=== PATIENT | female | born 1995 | race American Indian/Alaskan Native ===

== ENCOUNTER 2017-08-07 08:10 | Emergency (ER) | payer SELFPAY ==
[2017-08-07 08:29] VITALS: BP 125/70
[2017-08-07] MEDS ORDERED: NACL 0.9% 1000 ML 1,000 ML IV ONE (09:19)
--- NOTE | 2017-08-07 09:19 | Emergency Department Report ---
ED Abdominal Pain HPI - General Chief Complaint: Urogenital-Female Stated Complaint: ABD/BACK PAIN Time Seen by Provider: 08/07/17 08:50 Source: patient Mode of arrival: Ambulatory Limitations: No Limitations - History of Present Illness Initial Comments: This is a 21-year-old female nontoxic, well nourished in appearance, no acute signs of distress presents to the ED with c/o of lower abdominal pain, flank pain, vaginal discharge, dysuria 1 week. Patient describes low abdominal pain as aching level of 6 out of 10. Patient denies any nausea, vomiting, numbness, tingling, radiation of back pain, chest pain, shortness of breath, epigastric pain, fever, chills, headache or stiff neck. Patient discussed vaginal discharge as white thick with foul order. Patient states she is concerned about sexual transmitted disease and likely be treated empirically. Patient denies any allergies. Past medical history includes genital herpes. MD Complaint: abdominal pain, flank pain -: week(s) (1) Location: diffuse Radiation: none Migration to: no migration Severity: mild Severity scale (0 -10): 6 Quality: aching Consistency: constant Improves With: nothing Worsens With: nothing Associated Symptoms: denies other symptoms. denies: nausea, vomiting, diarrhea , fever, chills, constipation, dysuria, hematemesis, hematochezia, melena, hematuria, anorexia, syncope - Related Data Previous Rx's Medication Instructions Recorded Last Taken Type Ciprofloxacin HCl [Ciprofloxacin 500 mg PO Q12H #14 tab 08/07/17 Unknown Rx TAB] metroNIDAZOLE [Flagyl] 500 mg PO Q12HR #14 tab 08/07/17 Unknown Rx Allergies Allergy/AdvReac Type Severity Reaction Status Date / Time No Known Allergies Allergy Unverified 08/07/17 08:25 ED Review of Systems ROS: Stated complaint: ABD/BACK PAIN Other details as noted in HPI Constitutional: denies: chills, fever Eyes: denies: eye pain, eye discharge, vision change ENT: denies: ear pain, throat pain Respiratory: denies: cough, shortness of breath, wheezing Cardiovascular: denies: chest pain, palpitations Endocrine: no symptoms reported Gastrointestinal: abdominal pain. denies: nausea, diarrhea Genitourinary: dysuria, discharge. denies: urgency Musculoskeletal: back pain. denies: joint swelling, arthralgia Skin: denies: rash, lesions Neurological: denies: headache, weakness, paresthesias Psychiatric: denies: anxiety, depression Hematological/Lymphatic: denies: easy bleeding, easy bruising ED Past Medical Hx - Past Medical History Previous Medical History?: Yes Additional medical history: Herpes - Surgical History Past Surgical History?: No - Social History Smoking Status: Never Smoker Substance Use Type: None - Medications Home Medications: Home Medications Medication Instructions Recorded Confirmed Last Taken Type Ciprofloxacin HCl [Ciprofloxacin 500 mg PO Q12H #14 tab 08/07/17 Unknown Rx TAB] metroNIDAZOLE [Flagyl] 500 mg PO Q12HR #14 tab 08/07/17 Unknown Rx ED Physical Exam - General Limitations: No Limitations General appearance: alert, in no apparent distress - Head Head exam: Present: atraumatic, normocephalic, normal inspection - Eye Eye exam: Present: normal appearance, PERRL, EOMI. Absent: scleral icterus, conjunctival injection, nystagmus, periorbital swelling, periorbital tenderness Pupils: Present: normal accommodation - ENT ENT exam: Present: normal exam, normal orophraynx, mucous membranes moist, TM's normal bilaterally, normal external ear exam - Neck Neck exam: Present: normal inspection, full ROM. Absent: tenderness, meningismus, lymphadenopathy, thyromegaly - Respiratory Respiratory exam: Present: normal lung sounds bilaterally. Absent: respiratory distress, wheezes, rales, rhonchi, stridor, chest wall tenderness, accessory muscle use, decreased breath sounds, prolonged expiratory - Cardiovascular Cardiovascular Exam: Present: regular rate, normal rhythm, normal heart sounds. Absent: irregular rhythm, systolic murmur, diastolic murmur, rubs, gallop - GI/Abdominal GI/Abdominal exam: Present: soft, normal bowel sounds. Absent: distended, tenderness, guarding, rebound, rigid, diminished bowel sounds - Rectal Rectal exam: Present: deferred - External exam: Present: normal external exam, other (steel unloader Anastacia RN present during exam). Absent: erythema, swelling, lesions, lacerations, ecchymosis, bleeding Speculum exam: Present: normal speculum exam, cervical discharge (thich white with odor), other (steel unloader Anastacia RN present during exam). Absent: erythema, vaginal discharge, vaginal bleeding, foreign body, tissue, laceration Bi-manual exam: Present: normal bi-manual exam, other (steel unloader Anastacia MARSHALL present during exam). Absent: cervical motion tendernes, adnexal tenderness, uterine enlargement, uterine tenderness - Extremities Exam Extremities exam: Present: normal inspection, full ROM, normal capillary refill. Absent: tenderness, pedal edema, joint swelling, calf tenderness - Back Exam Back exam: Present: normal inspection, full ROM, CVA tenderness (R). Absent: tenderness, CVA tenderness (L), muscle spasm, paraspinal tenderness, vertebral tenderness, rash noted - Neurological Exam Neurological exam: Present: alert, oriented X3, CN II-XII intact, normal gait, reflexes normal - Psychiatric Psychiatric exam: Present: normal affect, normal mood - Skin Skin exam: Present: warm, dry, intact, normal color. Absent: rash ED Course Vital Signs 08/07/17 08:25 Temperature 98.5 F Pulse Rate 102 H Respiratory 16 Rate Blood Pressure 125/70 O2 Sat by Pulse 100 Oximetry - Reevaluation(s) Reevaluation #1: 08/07/17 09:21 Patient is speaking in full sentences with no signs of distress noted. ED Medical Decision Making - Lab Data Result diagrams: 08/07/17 09:46 08/07/17 09:46 - Medical Decision Making This is a 21-year-old female BV, UTI versus pyelonephritis and possible STD. Patient is stable and was examined by me. Due to physical exam of positive CVA tenderness and UJTI symptoms patient is treated for pyelo. Labs obtained within normal limits. CT of abd with contrast obtained with normal exam and dictated by radiologist. Patient is notified of ct results with no questions noted. UA obtained. GC obtained and pending. Wet prep obtained. Patient was instructed to return in 3 days to obtain results of GC. Patient stated wants to be treated empirically. Pt received Rocephin and azithromycin in the ED. Patient discharged with Cipro and flagyl. Pt was instructed not to consume and alcohol while taking Flagyl. Patient was instructed Follow-up with a primary care doctor in 3-5 days or if symptoms worsen and continue return to emergency room as soon as possible. At time time of discharge, the patient does not seem toxic or ill in appearance. No acute signs of distress noted. Patient agrees to discharge treatment plan of care. No further questions noted by the patient. Critical care attestation.: If time is entered above; I have spent that time in minutes in the direct care of this critically ill patient, excluding procedure time. ED Disposition Clinical Impression: Pyelonephritis, Possible exposure to STD, Bacterial vaginosis UTI (urinary tract infection) Qualifiers: Urinary tract infection type: site unspecified Hematuria presence: without hematuria Qualified Code(s): N39.0 - Urinary tract infection, site not specified Disposition: TO HOME OR SELFCARE Is pt being admited?: No Does the pt Need Aspirin: No Condition: Stable Instructions: Ciprofloxacin (By mouth), Urinary Tract Infection in Women (ED), Acute Pyelonephritis (ED), Bacterial Vaginosis (ED) Additional Instructions: Follow-up with a primary care doctor in 3-5 days or if symptoms worsen and continue return to emergency room as soon as possible. Return in 3 days to obtained results of gonorrhea/chlamydia. Do not consume and alcohol while taking antibiotics Prescriptions: Ciprofloxacin HCl [Ciprofloxacin TAB] 500 mg PO Q12H #14 tab metroNIDAZOLE [Flagyl] 500 mg PO Q12HR #14 tab Referrals: PRIMARY MD JAVIER [Primary Care Provider] - 3-5 Days CELIA GARCIA MD [Staff Physician] - 3-5 Days CLAIRE QUINTANILLA MD [Staff Physician] - 3-5 Days [facility] [Outside] - 3-5 Days [facility] [Outside] - 3-5 Days Forms: Work/School Release Form(ED), STI Treatment and Prevention
[2017-08-07] MEDS ORDERED: ZITHROMAX PO ONE (09:37)
[2017-08-07] MEDS ORDERED: ROCEPHIN IM ONE (09:37)
[2017-08-07] MEDS ORDERED: XYLOCAINE 1% MPF 5 mL INFILTRATI ONE (09:37)
[2017-08-07 09:38] LABS: Bacteria,Urine 1+ /HPF (Negative); Bilirubin,Urine NEG (Negative); Blood,Urine MOD (Negative); Ketones,Urine 80 mg/dL (Negative); Leukocyte Esterase,Urine SM (Negative); Mucus,Urine FEW /HPF; Nitrite,Urine NEG (Negative); Protein,Urine <15 mg/dL mg/dL (Negative); Urobilinogen,Urine < 2.0 mg/dL (<2.0)
[2017-08-07 10:01] LABS: Basophils % (Auto) 0.3 % (0.0-1.8); Eosinophils % (Auto) 1.2 % (0.0-4.3); Hematocrit 36.5 % (30.3-42.9); Hemoglobin 12.5 gm/dl (10.1-14.3); Mean Corpuscular HGB Conc 34 % (30-34); Mean Corpuscular Hemoglobin 28 pg (28-32); Mean Corpuscular Volume 82 fl (79-97); Platelet Count 296 K/mm3 (140-440); Red Blood Count 4.43 M/mm3 (3.65-5.03); Red Cell Distribution Width 13.3 % (13.2-15.2); White Blood Count 6.9 K/mm3 (4.5-11.0)
[2017-08-07] MEDS ORDERED: NACL ONE (10:05)
[2017-08-07 10:16] LABS: Alanine Aminotransferase 9 units/L (7-56); Albumin 4.1 g/dL (3.9-5); Albumin/Globulin Ratio 1.2 %; Alkaline Phosphatase 54 units/L (35-129); Amylase 107 units/L (27-131); Anion Gap 18 mmol/L; BUN/Creatinine Ratio 13; Blood Urea Nitrogen 9 mg/dL (7-17); Calcium 9.5 mg/dL (8.4-10.2); Carbon Dioxide 26 mmol/L (22-30); Chloride 101.5 mmol/L (98-107); Glucose 82 mg/dL (65-100); Lipase 12 units/L (13-60); Potassium 4.4 mmol/L (3.6-5.0); Sodium 141 mmol/L (137-145); Total Protein 7.5 g/dL (6.3-8.2)
[2017-08-07 10:18] LABS: Bilirubin,Direct < 0.2 mg/dL (0-0.2); Bilirubin,Indirect 0.3 mg/dL
--- NOTE | 2017-08-07 11:08 | Cat Scan Report ---
CT ABDOMEN PELVIS WITH CONTRAST: HISTORY: abdominal pain. COMPARISON: none. TECHNIQUE: Helical CT in 1.25mm intervals following IV contrast. Sagittal and coronal reconstructions. FINDINGS: Lung bases: normal. Liver: normal. Biliary system: normal. Pancreas: normal. Spleen: normal. Kidneys/ureters/bladder: normal. Adrenal glands: normal. Aorta: normal. Intestines: normal. Appendix: normal. Pelvic viscera: normal. Musculoskeletal: normal. IMPRESSION: Unremarkable CT scan of the abdomen and pelvis with contrast.
[2017-08-07] MEDS ORDERED: TORADOL IV ONE (11:26)
[2017-08-07] MEDS ORDERED: TORADOL ONE (11:29)
== END 2017-08-07 12:21 | disposition home or self-care (01) ==
LOC: ED 08:10
DX: N12 Tubulo-interstitial nephritis, not specified as acute or chronic (principal); N39.0 Urinary tract infection, site not specified; N76.0 Acute vaginitis
CPT/HCPCS: 36415; 74177; 80048; 80074; 81001; 82150; 83690; 84703; 85025; 87086; 87210; 87591; 96361; 96372; 96374; 99285; J0696; J1885; J7030; Q9967

== ENCOUNTER 2017-08-12 21:55 | Emergency (ER) | payer SELFPAY ==
[2017-08-12] MEDS ORDERED: NACL 0.9% 1000 ML 1,000 ML IV ONE (22:51)
[2017-08-12] MEDS ORDERED: MORPHINE IV ONE (22:52)
--- NOTE | 2017-08-12 22:56 | Emergency Department Report ---
HPI - General Chief Complaint: Abdominal Pain Time Seen by Provider: 08/12/17 22:38 - HPI HPI: This is a 21 year-old female presents to the emergency department from home with complaint of some lower abdominal and/or pelvic pain that has been going on for about one week. The patient was here 5 days ago, on 08/07/17, for similar symptoms and was diagnosed with bacterial vaginosis and possibly a UTI. She was sent home with Flagyl and Cipro which she says she has been taking. She says the pain has not gotten any better and possibly worsened. She also shows a picture of some type of discharge or growth that she says is a picture of her vagina. She does not have a primary care physician or IT APPLICATIONS DEVELOPER. She denies any fever, nausea, vomiting but does complain of some dysuria. No recent travel or sick contacts at home. ED Past Medical Hx - Past Medical History Additional medical history: Herpes - Surgical History Past Surgical History?: No - Social History Smoking Status: Never Smoker Substance Use Type: None - Medications Home Medications: Home Medications Medication Instructions Recorded Confirmed Last Taken Type Ciprofloxacin HCl [Ciprofloxacin 500 mg PO Q12H #14 tab 08/07/17 Unknown Rx TAB] metroNIDAZOLE [Flagyl] 500 mg PO Q12HR #14 tab 08/07/17 Unknown Rx Fluconazole [Diflucan] 150 mg PO QDAY #2 tablet 08/13/17 Unknown Rx Miconazole/Cleanser 17 On Wipe 1 each VG QHS #1 kit 08/13/17 Unknown Rx [Monistat 7 Combination Pack] ED Review of Systems ROS: Stated complaint: ABD PAIN Other details as noted in HPI Comment: All other systems reviewed and negative Constitutional: denies: chills, fever Eyes: denies: eye pain, eye discharge, vision change ENT: denies: ear pain, throat pain Respiratory: denies: cough, shortness of breath, wheezing Cardiovascular: denies: chest pain, palpitations Gastrointestinal: abdominal pain. denies: nausea, vomiting Genitourinary: dysuria, discharge Musculoskeletal: denies: back pain, joint swelling, arthralgia Skin: denies: rash, lesions Neurological: denies: headache, weakness, paresthesias Physical Exam - Physical Exam Vital Signs: Vital Signs 08/12/17 08/12/17 22:09 22:44 Temperature 99.1 F 99.7 F H Pulse Rate 98 H 106 H Respiratory 16 18 Rate Blood Pressure 137/77 Blood Pressure 130/65 [Right] O2 Sat by Pulse 100 100 Oximetry Physical Exam: GENERAL: The patient is well-developed well-nourished. HENT: Normocephalic. Atraumatic. Patient has moist mucous membranes. EYES: Extraocular motions are intact. Pupils equal reactive to light bilaterally. NECK: Supple. Trachea is midline. CHEST/LUNGS: Clear to auscultation. There is no respiratory distress noted. HEART/CARDIOVASCULAR: Regular. There is no tachycardia. There is no murmur. ABDOMEN: Abdomen is soft, nontender. Patient has normal bowel sounds. There is no abdominal distention. SKIN: Skin is warm and dry. NEURO: The patient is awake, alert, and oriented. The patient is cooperative. The patient has no focal neurologic deficits. The patient has normal speech. MUSCULOSKELETAL: There is no tenderness or deformity. There is no limitation range of motion. There is no evidence of acute injury. : There is some thick white cheesy-appearing discharge seen in the vaginal vault. There is also a small amount of thin white discharge. No vaginal or labial lesions seen. ED Course Vital Signs 08/12/17 08/12/17 22:09 22:44 Temperature 99.1 F 99.7 F H Pulse Rate 98 H 106 H Respiratory 16 18 Rate Blood Pressure 137/77 Blood Pressure 130/65 [Right] O2 Sat by Pulse 100 100 Oximetry ED Medical Decision Making - Lab Data Result diagrams: 08/12/17 22:42 08/12/17 22:42 - Radiology Data Radiology results: report reviewed EXAM: US TRANSVAGINAL, US PELVIS DUPLEX DOPPLER COMP HISTORY: Pelvic pain. TECHNIQUE: Directed transabdominal and transvaginal ultrasound examination of the pelvis was performed, with grayscale and color Doppler images obtained. No prior studies are available for comparison. FINDINGS: The uterus is anteverted, and measures approximately 4.4 x 3.5 x 7.2 cm on the transvaginal images. There is no discrete uterine mass. The endometrium measures 1.1 cm, within normal limits for patient's age. The right ovary measures 2.0 x 1.5 x 3.0 cm, and the left ovary measures 1.9 x 1.8 x 3.6 cm. Both ovaries contain normal appearing, subcentimeter follicles. There is appropriate color doppler flow in both ovaries, without evidence of torsion. No other adnexal mass is seen. There is no significant pelvic free fluid. IMPRESSION: Normal sonographic appearance of the uterus and bilateral ovaries. Transcribed By: FREDDY Dictated By: LOLI BECKETT MD Electronically Authenticated By: LOLI BECKETT MD Signed Date/Time: 08/12/172051 - Medical Decision Making The patient presents with complaints of vaginal discharge with some irritation, diarrhea and some pelvic discomfort. Vital signs and stable throughout her ED course. Labs and mostly unremarkable. No leukocytosis. Patient is not . There does not appear to be any significant urinary tract infection. The wet prep was negative for BV and trichomoniasis. She does have a large amount of thick white cheesy discharge concerning for a candidal vaginal infection. She is artifact from taking a weeks worth of Flagyl and Cipro. She will go home on Diflucan and Monistat. The rectal exam was done and there was stool that was guaiac-negative. The patient also had a pelvic ultrasound with Doppler that did not show any abnormalities of the uterus or ovaries. She was given a referral for IT APPLICATIONS DEVELOPER. She will return to the ER with any worsening of her symptoms or any acute distress. - Differential Diagnosis BV, yeast infection, trichomoniasis, UTI, fibroids, ovarian torsion Critical Care Time: No Critical care attestation.: If time is entered above; I have spent that time in minutes in the direct care of this critically ill patient, excluding procedure time. ED Disposition Clinical Impression: Vulvovaginal candidiasis, Pelvic pain Diarrhea Qualifiers: Diarrhea type: unspecified type Qualified Code(s): R19.7 - Diarrhea, unspecified Disposition: DC-01 TO HOME OR SELFCARE Is pt being admited?: No Condition: Stable Instructions: Vulvovaginal Candidiasis (ED), Acute Diarrhea (ED) Additional Instructions: Please follow up with a primary care physician and IT APPLICATIONS DEVELOPER as soon as possible. Return to the emergency Department with any worsening of her symptoms or any acute distress. Prescriptions: Miconazole/Cleanser 17 On Wipe [Monistat 7 Combination Pack] 1 each VG QHS #1 kit Fluconazole [Diflucan] 150 mg PO QDAY #2 tablet Referrals: PRIMARY CAREMD [Primary Care Provider] - 3-5 Days [facility] [Provider Group] - 3-5 Days DANIS HURTADO MD [Staff Physician] - 3-5 Days [facility] [Outside] - 3-5 Days Time of Disposition: 02:09
[2017-08-12 23:29] LABS: Basophils % (Auto) 0.4 % (0.0-1.8); Hematocrit 34.7 % (30.3-42.9); Hemoglobin 11.9 gm/dl (10.1-14.3); Mean Corpuscular HGB Conc 34 % (30-34); Mean Corpuscular Hemoglobin 28 pg (28-32); Mean Corpuscular Volume 82 fl (79-97); Platelet Count 286 K/mm3 (140-440); Red Blood Count 4.26 M/mm3 (3.65-5.03); Red Cell Distribution Width 13.9 % (13.2-15.2); White Blood Count 10.6 K/mm3 (4.5-11.0)
[2017-08-12 23:46] LABS: Alanine Aminotransferase 10 units/L (7-56); Albumin 4.1 g/dL (3.9-5); Albumin/Globulin Ratio 1.3 %; Alkaline Phosphatase 57 units/L (35-129); Anion Gap 16 mmol/L; BUN/Creatinine Ratio 13; Blood Urea Nitrogen 9 mg/dL (7-17); Calcium 9.1 mg/dL (8.4-10.2); Carbon Dioxide 24 mmol/L (22-30); Chloride 103.1 mmol/L (98-107); Glucose 117 mg/dL (65-100); Lipase 18 units/L (13-60); Potassium 3.5 mmol/L (3.6-5.0); Sodium 140 mmol/L (137-145); Total Protein 7.3 g/dL (6.3-8.2)
[2017-08-13 00:03] LABS: Bacteria,Urine 1+ /HPF (Negative); Bilirubin,Urine NEG (Negative); Blood,Urine NEG (Negative); Ketones,Urine TR mg/dL (Negative); Leukocyte Esterase,Urine LG (Negative); Mucus,Urine FEW /HPF; Nitrite,Urine NEG (Negative); Protein,Urine <15 mg/dL mg/dL (Negative); Urobilinogen,Urine < 2.0 mg/dL (<2.0)
--- NOTE | 2017-08-13 00:55 | Ultrasound Report ---
FINAL REPORT EXAM: US TRANSVAGINAL, US PELVIS DUPLEX DOPPLER COMP HISTORY: Pelvic pain. TECHNIQUE: Directed transabdominal and transvaginal ultrasound examination of the pelvis was performed, with grayscale and color Doppler images obtained. No prior studies are available for comparison. FINDINGS: The uterus is anteverted, and measures approximately 4.4 x 3.5 x 7.2 cm on the transvaginal images. There is no discrete uterine mass. The endometrium measures 1.1 cm, within normal limits for patient's age. The right ovary measures 2.0 x 1.5 x 3.0 cm, and the left ovary measures 1.9 x 1.8 x 3.6 cm. Both ovaries contain normal appearing, subcentimeter follicles. There is appropriate color doppler flow in both ovaries, without evidence of torsion. No other adnexal mass is seen. There is no significant pelvic free fluid. IMPRESSION: Normal sonographic appearance of the uterus and bilateral ovaries.
--- NOTE | 2017-08-13 00:58 | Ultrasound Report ---
FINAL REPORT EXAM: US TRANSVAGINAL, US PELVIS DUPLEX DOPPLER COMP. HISTORY: Pelvic pain. TECHNIQUE: Directed transabdominal and transvaginal ultrasound examination of the pelvis was performed, with grayscale and color Doppler images obtained. No prior studies are available for comparison. FINDINGS: The uterus is anteverted, and measures approximately 4.4 x 3.5 x 7.2 cm on the transvaginal images. There is no discrete uterine mass. The endometrium measures 1.1 cm, within normal limits for patient's age. The right ovary measures 2.0 x 1.5 x 3.0 cm, and the left ovary measures 1.9 x 1.8 x 3.6 cm. Both ovaries contain subcentimeter follicles. There is appropriate color doppler flow in both ovaries, without evidence of torsion. No other adnexal mass is seen. There is no significant pelvic free fluid. IMPRESSION: Normal sonographic appearance of the uterus and bilateral ovaries.
[2017-08-13 02:13] VITALS: BP 111/58
== END 2017-08-13 02:24 | disposition home or self-care (01) ==
LOC: ED 21:55
DX: B37.3 Candidiasis of vulva and vagina (principal); R19.7 Diarrhea, unspecified
CPT/HCPCS: 36415; 76830; 80053; 81001; 83690; 84703; 85025; 87210; 87591; 93975; 96361; 96374; 99284; J2270; J7030

== ENCOUNTER 2018-09-25 18:49 | Emergency (ER) | payer MEDICAID ==
[2018-09-25 19:07] VITALS: BP 129/71
[2018-09-25 19:39] LABS: Basophils % (Auto) 0.3 % (0.0-1.8); Eosinophils # (Auto) 0.1 K/mm3 (0.0-0.4); Eosinophils % (Auto) 1.6 % (0.0-4.3); Hematocrit 33.4 % (30.3-42.9); Hemoglobin 10.9 gm/dl (10.1-14.3); Lymphocytes # (Auto) 2.3 K/mm3 (1.2-5.4); Lymphocytes % (Auto) 25.8 % (13.4-35.0); Mean Corpuscular HGB Conc 32 % (30-34); Mean Corpuscular Volume 78 fl (79-97); Monocytes # (Auto) 0.4 K/mm3 (0.0-0.8); Monocytes % (Auto) 4.9 % (0.0-7.3); Platelet Count 331 K/mm3 (140-440); Red Blood Count 4.31 M/mm3 (3.65-5.03); Red Cell Distribution Width 17.3 % (13.2-15.2)
[2018-09-25 19:51] LABS: BUN/Creatinine Ratio 16; Blood Urea Nitrogen 13 mg/dL (7-17); Hemolysis Index 0
--- NOTE | 2018-09-25 22:06 | Emergency Department Report ---
ED Chest Pain HPI - General Chief Complaint: Chest Pain Stated Complaint: CHEST PAIN/SOB Time Seen by Provider: 09/25/18 21:01 Source: patient Mode of arrival: Ambulatory Limitations: No Limitations - History of Present Illness Initial Comments: 22 year old -Malagasy female comes in complaining of left-sided chest pain 3 weeks with radiation to the back. Patient states the pain gets worse when talking or deep breathing. Patient states it is a stabbing pain and shortness of breathing. Patient denies any nausea no vomiting. Patient does st ate she had a 2 months ago. Patient reports no complications on her she did have to deliver with the . She is currently taking no control. She has not taken anything for pain. MD Complaint: chest pain -: week(s) (3) Pain Location: substernal Pain Radiation: back Severity: severe Severity scale (0 -10): 8 Quality: sharp Consistency: constant Improves With: nothing Worsens With: inspiration (deep), palpation, movement Context: recent surgery (2 months ) re: denies: nausea, vomting Other Symptoms: denies: cough, fever, syncope, acid taste in mouth, leg swelling, palpitations, burping Treatments Prior to Arrival: none - Related Data On Oral Contraceptives: No Previous Rx's Medication Instructions Recorded Last Taken Type Ciprofloxacin HCl [Ciprofloxacin 500 mg PO Q12H #14 tab 08/07/17 Unknown Rx TAB] metroNIDAZOLE [Flagyl] 500 mg PO Q12HR #14 tab 08/07/17 Unknown Rx Fluconazole [Diflucan] 150 mg PO QDAY #2 tablet 08/13/17 Unknown Rx Miconazole/Cleanser 17 On Wipe 1 each VG QHS #1 kit 08/13/17 Unknown Rx [Monistat 7 Combination Pack] Ibuprofen [Motrin] 800 mg PO Q8HR PRN #20 tablet 07/14/18 Unknown Rx oxyCODONE /ACETAMINOPHEN [Percocet 1 tab PO Q4HR #14 tab 07/14/18 Unknown Rx 5/325] Ibuprofen [Motrin 600 MG tab] 600 mg PO Q8H #15 tablet 09/25/18 Unknown Rx Allergies Allergy/AdvReac Type Severity Reaction Status Date / Time No Known Allergies Allergy Verified 07/12/18 22:44 Heart Score - HEART Score History: Slightly suspicious EKG: Normal Age: < 45 Risk factors: No known risk factors Troponin: < normal limit HEART Score: 0 ED Review of Systems ROS: Stated complaint: CHEST PAIN/SOB Other details as noted in HPI Comment: All other systems reviewed and negative Respiratory: shortness of breath Cardiovascular: chest pain ED Past Medical Hx - Past Medical History Previous Medical History?: Yes Hx Hypertension: No Hx Congestive Heart Failure: No Hx Diabetes: No Hx Deep Vein Thrombosis: No Hx Renal Disease: No Hx Sickle Cell Disease: Yes (sickle cell trait only) Hx Seizures: No Hx Asthma: No Hx COPD: No Hx HIV: No Additional medical history: Herpes - Surgical History Past Surgical History?: Yes Additional Surgical History: - Social History Smoking Status: Never Smoker Substance Use Type: None - Medications Home Medications: Home Medications Medication Instructions Recorded Confirmed Last Taken Type Ciprofloxacin HCl [Ciprofloxacin 500 mg PO Q12H #14 tab 08/07/17 07/15/18 Unknown Rx TAB] metroNIDAZOLE [Flagyl] 500 mg PO Q12HR #14 tab 08/07/17 07/15/18 Unknown Rx Fluconazole [Diflucan] 150 mg PO QDAY #2 tablet 08/13/17 07/15/18 Unknown Rx Miconazole/Cleanser 17 On Wipe 1 each VG QHS #1 kit 08/13/17 07/15/18 Unknown Rx [Monistat 7 Combination Pack] Ibuprofen [Motrin] 800 mg PO Q8HR PRN #20 tablet 07/14/18 Unknown Rx oxyCODONE /ACETAMINOPHEN [Percocet 1 tab PO Q4HR #14 tab 07/14/18 Unknown Rx 5/325] Ibuprofen [Motrin 600 MG tab] 600 mg PO Q8H #15 tablet 09/25/18 Unknown Rx ED Physical Exam - General Limitations: No Limitations General appearance: alert, in no apparent distress - Head Head exam: Present: atraumatic, normocephalic - Eye Eye exam: Present: EOMI - ENT ENT exam: Present: mucous membranes moist - Respiratory Respiratory exam: Present: normal lung sounds bilaterally, chest wall tenderness . Absent: respiratory distress - Cardiovascular Cardiovascular Exam: Present: regular rate, normal rhythm. Absent: systolic murmur, diastolic murmur, rubs, gallop - GI/Abdominal GI/Abdominal exam: Present: soft, normal bowel sounds. Absent: distended, tenderness - Back Exam Back exam: Present: normal inspection, full ROM - Neurological Exam Neurological exam: Present: alert, oriented X3 - Psychiatric Psychiatric exam: Present: normal affect, normal mood - Skin Skin exam: Present: warm, dry, intact, normal color. Absent: rash ED Course Vital Signs 09/25/18 19:02 Temperature 99.1 F Pulse Rate 98 H Respiratory 18 Rate Blood Pressure 129/71 O2 Sat by Pulse 99 Oximetry ARJUN score - Arjun Score Age > 65: (0) No Aspirin use within the Past 7 Days: (0) No 3 or more CAD Risk Factors: (0) No 2 or more Angina events in past 24 hrs: (0) No Known CAD with more than 50% Stenosis: (0) No Elevated Cardiac Markers: (0) No ST Deviation Greater than 0.5mm: (0) No ARJUN Score: 0 ED Medical Decision Making - Lab Data Result diagrams: 09/25/18 19:17 09/25/18 19:17 - Radiology Data Radiology results: report reviewed Chest x-ray shows no cardiopulmonary abnormalities. Critical care attestation.: If time is entered above; I have spent that time in minutes in the direct care of this critically ill patient, excluding procedure time. ED Disposition Clinical Impression: Costochondritis, acute Disposition: Z-07 ELOPED Is pt being admited?: No Does the pt Need Aspirin: No Condition: Stable Instructions: Ibuprofen (By mouth), Costochondritis (ED) Additional Instructions: Chest x-ray EKG and labs are negative for any acute coronary or pulmonary disease. U have reproducible chest pain and back pain. This appears to be a costochondritis. Ibuprofen the best medication for costochondritis. Please take with food and plenty of water. It is safe in breast-feeding. Follow up with the primary care provider if his symptoms persist or gets worse. Prescriptions: Ibuprofen [Motrin 600 MG tab] 600 mg PO Q8H #15 tablet Referrals: CELIO ORONA MD [Primary Care Provider] - 3-5 Days [facility] [Provider Group] - 3-5 Days Forms: Work/School Release Form(ED)
--- NOTE | 2018-09-25 22:58 | XRay Report ---
FINAL REPORT EXAM: XR CHEST ROUTINE 2V HISTORY: cp TECHNIQUE: 2 views of the chest. PRIORS: None. FINDINGS: The cardiomediastinal silhouette appears normal. The lungs are clear. The bones and soft tissues are unremarkable. IMPRESSION: No evidence of acute cardiopulmonary disease
[2018-09-25] MEDS ORDERED: IBUPROFEN PO ONE (23:33)
== END 2018-09-25 23:40 | disposition left against medical advice (07) ==
LOC: ED 18:49
DX: M94.0 Chondrocostal junction syndrome [Tietze] (principal); D57.3 Sickle-cell trait; Z79.899 Other long term (current) drug therapy
CPT/HCPCS: 36415; 71046; 80048; 83690; 84484; 84703; 85025; 85379; 93005; 93010; 99283

== ENCOUNTER 2019-09-24 12:08 | Emergency (ER) | payer MEDICAID, MEDICARE ==
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
--- NOTE | 2019-09-24 15:48 | Cat Scan Report ---
CT HEAD WITHOUT CONTRAST INDICATION / CLINICAL INFORMATION: headache/neck pain w/ loc. TECHNIQUE: All CT scans at this location are performed using CT dose reduction for ALARA by means of automated e xposure control. COMPARISON: None available. FINDINGS: HEMORRHAGE: No evidence of intracranial hemorrhage or extra-axial fluid collection. EXTRA-AXIAL SPACES: Cortical sulci, sylvian fissures and basilar cisterns have an unremarkable appear ance. VENTRICULAR SYSTEM: The ventricular system is of normal size and configuration. CEREBRAL PARENCHYMA: No areas of abnormal brain parenchymal attenuation are identified. There is no i ndication of recent infarction. MIDLINE SHIFT OR HERNIATION: There is no mass effect. CEREBELLUM / BRAINSTEM: Brainstem and cerebellum have an unremarkable appearance. INTRACRANIAL VESSELS:No abnormalities are identified on this noncontrast head CT. ORBITS: visualized portions of the orbits have an unremarkable appearance. SOFT TISSUES of HEAD: No significant abnormality. CALVARIUM: Evaluation of bone windows reveals no abnormalities. PARANASAL SINUSES / MASTOID AIR CELLS: Paranasal sinuses are free from inflammatory mucosal disease. Mastoid air cells are normally pneumatized. ADDITIONAL FINDINGS: None. IMPRESSION: 1. No abnormality on head CT without contrast. Signer Name: Valdemar Rangel MD Signed: 09/24/2019 3:44 PM Workstation Name: [id number]
--- NOTE | 2019-09-24 16:36 | Cat Scan Report ---
CT cervical spine wo con INDICATION / CLINICAL INFORMATION: 23 years Female; headache/neck pain w/ loc. TECHNIQUE: Axial CT images of the cervical spine were obtained. Sagittal and coronal reformatted images were pr oduced. All CT scans at this location are performed using CT dose reduction for ALARA by means of aut omated exposure control. COMPARISON: None available. FINDINGS: POST-SURGICAL CHANGES: None. ALIGNMENT: This mild reversal of the cervical lordosis as well as slight curvature, convex toward the right. However, there is no significant spondylolisthesis. VERTEBRAE: There is no CT ends of acute fracture involving the cervical spine at. INTRAVERTEBRAL DISCS: There is mild right neural foraminal narrowing at C3 L4. There is some componen t of beam hardening artifact given the patient's body habitus. However, there is no clear CT evidence of central bony of spinal stenosis. PARASPINAL SOFT TISSUES: No prevertebral soft tissue fluid collections are identified at. The scatter ed cervical lymph nodes are most likely reactive. ADDITIONAL FINDINGS: None. IMPRESSION: 1. There is no CT evidence of acute fracture involving the cervical spine. Signer Name: Humberto Romo MD Signed: 09/24/2019 4:32 PM Workstation Name: [id number]
[2019-09-24] MEDS ORDERED: METOCLOPRAMIDE 10 MG TAB PO ONE (18:40)
[2019-09-24] MEDS ORDERED: ACETAMINOPHEN W/CODEINE 300-30 MG TAB PO ONE (18:40)
[2019-09-24] MEDS ORDERED: diphenhydrAMINE 25 MG CAP PO ONE (18:40)
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
[2019-09-24 19:55] VITALS: BP 123/86
== END 2019-09-24 19:30 | disposition home or self-care (01) ==
LOC: ED 12:08
DX: S09.90XA Unspecified injury of head, initial encounter (principal); H10.9 Unspecified conjunctivitis; Y08.89XA Assault by other specified means, initial encounter; Y93.89 Activity, other specified; Y92.89 Other specified places as the place of occurrence of the external cause; Y99.8 Other external cause status
CPT/HCPCS: 70450; 72125

== ENCOUNTER 2019-12-24 22:35 | Emergency (ER) | payer SELFPAY ==
[2019-12-24 22:54] VITALS: BP 128/77
[2019-12-24] MEDS ORDERED: diphenhydrAMINE 25 MG CAP PO ONE (23:19)
[2019-12-24] MEDS ORDERED: dexAMETHasone 20 MG/5 ML VIAL IM ONE (23:19)
[2019-12-24] MEDS ORDERED: FAMOTIDINE 20 MG TAB PO ONE (23:19)
--- NOTE | 2019-12-24 23:27 | Emergency Department Report ---
ED Rash HPI - HPI Chief Complaint: Skin Rash Stated Complaint: ALLERGIC REACTION Time Seen by Provider: 12/24/19 23:18 Duration: Today Location: Neck, Upper Extremities, Lower Extremities Suspected Cause: Unknown (soap/detergent) Rash Symptoms: Yes Itching, No Facial Swelling, No Tongue/Oral Swelling, No Breathing Difficulties, No Choking Sensation, No Wheezing/Dyspnea, No Peeling, No Blistering, No Fever, No Lightheaded, No Malaise, No Myalgias Severity: moderate ED Review of Systems ROS: Stated complaint: ALLERGIC REACTION Other details as noted in HPI Constitutional: denies: chills, fever, malaise Eyes: denies: eye pain, eye discharge, vision change ENT: denies: ear pain, throat pain, congestion Respiratory: denies: cough, shortness of breath, wheezing Cardiovascular: denies: chest pain, palpitations Endocrine: no symptoms reported Gastrointestinal: denies: abdominal pain, nausea, vomiting, diarrhea Genitourinary: denies: urgency, dysuria, discharge Musculoskeletal: denies: back pain, joint swelling, arthralgia Skin: rash, pruritus Neurological: denies: headache, weakness, paresthesias Psychiatric: denies: anxiety, depression Hematological/Lymphatic: denies: easy bleeding, easy bruising ED Past Medical Hx - Past Medical History Previous Medical History?: Yes Hx Hypertension: No Hx Congestive Heart Failure: No Hx Diabetes: No Hx Deep Vein Thrombosis: No Hx Renal Disease: No Hx Sickle Cell Disease: Yes (sickle cell trait only) Hx Seizures: No Hx Asthma: No Hx COPD: No Hx HIV: No Additional medical history: Herpes - Surgical History Past Surgical History?: Yes Additional Surgical History: - Social History Smoking Status: Never Smoker - Medications Home Medications: Home Medications Medication Instructions Recorded Confirmed Last Taken Type Ciprofloxacin HCl [Ciprofloxacin 500 mg PO Q12H #14 tab 08/07/17 07/15/18 Unknown Rx TAB] metroNIDAZOLE [Flagyl] 500 mg PO Q12HR #14 tab 08/07/17 07/15/18 Unknown Rx Fluconazole [Diflucan] 150 mg PO QDAY #2 tablet 08/13/17 07/15/18 Unknown Rx Miconazole/Cleanser 17 On Wipe 1 each VG QHS #1 kit 08/13/17 07/15/18 Unknown Rx [Monistat 7 Combination Pack] Ibuprofen [Motrin] 800 mg PO Q8HR PRN #20 tablet 07/14/18 Unknown Rx oxyCODONE /ACETAMINOPHEN [Percocet 1 tab PO Q4HR #14 tab 07/14/18 Unknown Rx 5/325] Ibuprofen [Motrin 600 MG tab] 600 mg PO Q8H #15 tablet 09/25/18 Unknown Rx Acetaminophen [Acetaminophen TAB] 500 mg PO Q6HR PRN #30 tablet 09/24/19 Unknown Rx Metoclopramide [Reglan] 10 mg PO TID PRN #30 tab 09/24/19 Unknown Rx Polymyxin B Sulf/Trimethoprim 2 drops OP Q3H 7 Days #10 drops 09/24/19 Unknown Rx [Polytrim Eye Drops] diphenhydrAMINE [Benadryl CAP] 25 mg PO Q6HR PRN #30 capsule 09/24/19 Unknown Rx Famotidine [Pepcid] 20 mg PO BID #30 tablet 12/24/19 Unknown Rx Triamcinolone Aceton 0.1% (Nf) 1 applic TP BID 14 Days #1 tube 12/24/19 Unknown Rx [Kenalog (NF)] diphenhydrAMINE [Benadryl CAP] 25 mg PO Q6HR PRN #30 capsule 12/24/19 Unknown Rx predniSONE [Deltasone] 20 mg PO QDAY 5 Days #10 tab 12/24/19 Unknown Rx Rash Exam - Exam General: Vital signs noted. No distress. Alert and acting appropriately. HEENT: No Periorbital Edema, No Conjuctival Injection, No Chemosis, No Perioral Edema, No Tongue Edema, No Uvular Edema, No Compromised Airway, No Drooling Lungs: Yes Good Air Exchange, No Wheezes, No Ronchi, No Stridor, No Cough, No Labored Respirations, No Retractions, No Use of Accessory Muscles, No Other Abnormal Lung Sounds Heart: Yes Regular, No Murmur Skin: Yes Urticarial Rash, Yes Maculopapular Rash, Yes Erythema, No Morbilliform rash, No Bulla(e), No Excoriations, No Weeping, No Tenderness, No Edema, No Encrustations Other: Positive: Abdomen Normal, Neurologic Normal, Musculoskeletal Normal ED Course Vital Signs 12/24/19 22:44 Temperature 99.1 F Pulse Rate 102 H Respiratory 18 Rate Blood Pressure 128/77 O2 Sat by Pulse 99 Oximetry ED Medical Decision Making - Medical Decision Making this is a contact dermatitis. symptoms improved with decadron, benadryl, and pepcid, there are no hives, will dc to home with rx for same, triamcinolone oint bid x 14 days. Pt will follow up with pcp in 2-3 days, will return to emergency if symptoms worsen. Critical care attestation.: If time is entered above; I have spent that time in minutes in the direct care of this critically ill patient, excluding procedure time. ED Disposition Clinical Impression: Contact dermatitis Qualifiers: Contact dermatitis type: allergic Contact dermatitis trigger: unspecified trigger Qualified Code(s): L23.9 - Allergic contact dermatitis, unspecified cause Disposition: DC-01 TO HOME OR SELFCARE Is pt being admited?: No Does the pt Need Aspirin: No Condition: Stable Instructions: Urticaria (ED), Allergies (ED) Prescriptions: diphenhydrAMINE [Benadryl CAP] 25 mg PO Q6HR PRN #30 capsule PRN Reason: allergies predniSONE [Deltasone] 20 mg PO QDAY 5 Days #10 tab Triamcinolone Aceton 0.1% (Nf) [Kenalog (NF)] 1 applic TP BID 14 Days #1 tube Famotidine [Pepcid] 20 mg PO BID #30 tablet Referrals: LILY ARIZMENDI DO [Staff Physician] - 3-5 Days Forms: Work/School Release Form(ED) Time of Disposition: 23:33
== END 2019-12-24 23:40 | disposition home or self-care (01) ==
LOC: ED 22:35
DX: L23.9 Allergic contact dermatitis, unspecified cause (principal)
CPT/HCPCS: 96372; 99282; J1100